=== PATIENT | male | born 1970 | race Caucasian/White ===

== ENCOUNTER 2017-01-16 12:07 | Emergency (ER) | payer BC, MEDICARE ==
[2017-01-16 12:16] VITALS: BP 201/83; PULSE 113; RESP 16; TEMP 96.8
--- NOTE | 2017-01-16 12:44 | ED ---
General Adult HPI - General Chief complaint: Urogenital Stated complaint: Cannot urinate Time Seen by Provider: 01/16/17 12:10 Source: patient, RN notes reviewed Mode of arrival: ambulatory Limitations: no limitations - History of Present Illness Initial comments: This is a 46-year-old male with a past medical history significant for prostate problems. Patient comes to emergency room today because he is unable to urinate since this morning. Patient states he is needed a Milan catheter in the past and he would like one stand for a few days because he is afraid is a reoccur. Patient states he has an appointment in the near future with urology. Patient denies any dysuria or hematuria. Patient denies any fever chills patient denies back pain - Related Data Home Medications Medication Instructions Recorded Confirmed DULoxetine HCL [Cymbalta] 60 mg PO DAILY 01/16/17 01/16/17 Gabapentin [Neurontin] 300 mg PO TID 01/16/17 01/16/17 Ibuprofen [Motrin] 800 mg PO TID 01/16/17 01/16/17 Tamsulosin [Flomax] 0.4 mg PO DAILY 01/16/17 01/16/17 Allergies Allergy/AdvReac Type Severity Reaction Status Date / Time shellfish derived [Shellfish] Allergy Anaphylaxis Verified 01/16/17 12:30 Review of Systems ROS Statement: Those systems with pertinent positive or pertinent negative responses have been documented in the HPI. ROS Other: All systems not noted in ROS Statement are negative. Past Medical History Additional Past Medical History / Comment(s): back pain, enlarged prostate History of Any Multi-Drug Resistant Organisms: None Reported Past Surgical History: Back Surgery Additional Past Surgical History / Comment(s): laminectomy l 4 l5 fusion Past Psychological History: Depression Smoking Status: Current every day smoker Past Alcohol Use History: None Reported Past Drug Use History: None Reported General Exam - General Exam Comments Initial Comments: GENERAL: Patient is well-developed and well-nourished. Patient is nontoxic and well- hydrated and is in mild distress. ENT: Neck is soft and supple. No significant lymphadenopathy is noted. Oropharynx is clear. Moist mucous membranes. Neck has full range of motion without eliciting any pain. EYES: The sclera were anicteric and conjunctiva were pink and moist. Extraocular movements were intact and pupils were equal round and reactive to light. Eyelids were unremarkable. PULMONARY: Unlabored respirations. Good breath sounds bilaterally. No audible rales rhonchi or wheezing was noted. CARDIOVASCULAR: There is a regular rate and rhythm without any murmurs gallops or rubs. ABDOMEN: Lower abdomen is mildly tender and distended. No palpable organomegaly was noted. There is no palpable pulsatile mass. SKIN: Skin is clear with no lesions or rashes and otherwise unremarkable. NEUROLOGIC: Patient is alert and oriented x3. Cranial nerves II through XII are grossly intact. Motor and sensory are also intact. Normal speech, volume and content. Symmetrical smile. MUSCULOSKELETAL: Normal extremities with adequate strength and full range of motion. No lower extremity swelling or edema. No calf tenderness. LYMPHATICS: No significant lymphadenopathy is noted PSYCHIATRIC: Normal psychiatric evaluation. Limitations: no limitations Course Vital Signs 01/16/17 12:12 Temperature 96.8 F L Pulse Rate 113 H Respiratory 16 Rate Blood Pressure 201/83 O2 Sat by Pulse 100 Oximetry Medical Decision Making - Medical Decision Making A Milan catheter was placed and the patient a 500 mL out complete relief of the distention and tenderness. Disposition Clinical Impression: Urinary retention Disposition: HOME SELF-CARE Condition: Good Instructions: Urinary Retention in Men (ED) Referrals: None,Stated [Primary Care Provider] - 1-2 days Time of Disposition: 12:44
[2017-01-16 12:50] LABS: Appearance,Urine Clear (Clear); Bilirubin,Urine Negative (Negative); Glucose,Urine (UA) Negative (Negative); Ketones,Urine Negative (Negative); Leukocyte Esterase,Urine Negative (Negative); Nitrite,Urine Negative (Negative); Protein,Urine Negative (Negative); Specific Gravity,Urine 1.003 (1.001-1.035); UA Billing (MACRO vs. MICRO) CHEM; Urobilinogen,Urine <2.0 mg/dL (<2.0)
== END 2017-01-16 13:10 | disposition home or self-care (01) ==
LOC: EC 12:07
DX: R33.9 Retention of urine, unspecified (principal); F32.9 Major depressive disorder, single episode, unspecified; M54.9 Dorsalgia, unspecified; F17.200 Nicotine dependence, unspecified, uncomplicated; Z91.013 Allergy to seafood; Z79.1 Long term (current) use of non-steroidal anti-inflammatories (NSAID); Z79.899 Other long term (current) drug therapy
CPT/HCPCS: 51702; 81003; 99283

== ENCOUNTER 2017-03-20 10:49 | Emergency (ER) | payer BC, MEDICARE ==
--- NOTE | 2017-03-20 11:56 | XR ---
EXAMINATION TYPE: XR lumbar spine 2 or 3V DATE OF EXAM: 03/20/2017 COMPARISON: 02/21/2012 HISTORY: 46-year-old male low back pain radiating up spine since fall 2 days ago TECHNIQUE: 3 views FINDINGS: L3-S1 posterior and interbody fusion is demonstrated. Corresponding laminectomies. Vertebral body hei ghts are preserved. Facet arthropathy above the fusion at L2-L3 with similar grade 1 retrolisthesis. Similar trace grade 1 retrolisthesis at L1-L2 as well. The orthopedic hardware appears largely uncomp licated. There is extension of posterior fusion as compared to 2011. IMPRESSION: L3-S1 posterior and interbody fusion. Corresponding laminectomies. Facet arthropathy above the fusion at L2-L3 with similar trace grade 1 retrolisthesis here and at L1-L2. No vertebral compression evelin apse.
--- NOTE | 2017-03-20 12:25 | ED ---
Fall HPI - General Chief Complaint: Fall Stated Complaint: Fall/ Back pain Time Seen by Provider: 03/20/17 11:56 Source: patient Mode of arrival: ambulatory - History of Present Illness Initial Comments: 46-year-old patient complaining of back pain and pain radiating up his back and down his legs. The pain began Monday after the patient slipped and fell on his deck. Return to the injury the patient states he did not have the symptoms. Patient reports pain with ambulation. Patient also states he has pain radiating down his spine when he turns his neck left and right. The patient has a significant history of 3 lumbar surgical procedures without complications. Patient denies any bowel bladder incontinence or retention. Has meant to some extremity paresthesias on the right foot, left upper thigh region. Patient states that he seems to not have great function of his right foot he states it does not move his usually would. Patient surgery most recent was in the last year by Dr. [email or web address]. Patient states that he does not normally take any pain medication. Patient does admit to small area swelling in his upper back region. - Related Data Home Medications Medication Instructions Recorded Confirmed Gabapentin [Neurontin] 300 mg PO TID 01/16/17 03/20/17 Ibuprofen [Motrin] 800 mg PO TID 01/16/17 03/20/17 Tamsulosin [Flomax] 0.4 mg PO DAILY 01/16/17 03/20/17 Acetaminophen Tab [Tylenol Tab] 650 mg PO Q6H PRN 03/20/17 03/20/17 Omeprazole Magnesium [PriLOSEC OTC] 20 mg PO DAILY 03/20/17 03/20/17 Previous Rx's Medication Instructions Recorded Hydrocodone/Acetaminophen [Gregory 1 tab PO Q6HR PRN #20 tab 03/20/17 5-325] Allergies Allergy/AdvReac Type Severity Reaction Status Date / Time shellfish derived [Shellfish] Allergy Anaphylaxis Verified 03/20/17 12:00 Review of Systems ROS Statement: Those systems with pertinent positive or pertinent negative responses have been documented in the HPI. ROS Other: All systems not noted in ROS Statement are negative. Past Medical History Additional Past Medical History / Comment(s): back pain, enlarged prostate History of Any Multi-Drug Resistant Organisms: None Reported Past Surgical History: Back Surgery Additional Past Surgical History / Comment(s): laminectomy l 4 l5 fusion Past Psychological History: Depression Smoking Status: Current every day smoker Past Alcohol Use History: None Reported Past Drug Use History: None Reported General Exam Limitations: no limitations General appearance: alert, in no apparent distress Head exam: Present: atraumatic, normocephalic, normal inspection Eye exam: Present: normal appearance, PERRL, EOMI. Absent: scleral icterus, conjunctival injection, periorbital swelling Neck exam: Present: normal inspection, full ROM. Absent: tenderness, meningismus, lymphadenopathy Respiratory exam: Present: normal lung sounds bilaterally. Absent: respiratory distress, wheezes, rales, rhonchi, stridor Cardiovascular Exam: Present: regular rate, normal rhythm, normal heart sounds. Absent: systolic murmur, diastolic murmur, rubs, gallop, clicks GI/Abdominal exam: Present: soft, normal bowel sounds. Absent: distended, tenderness, guarding, rebound, rigid Speculum exam: Present: other Extremities exam: Present: tenderness, other (Tender with palpation over the lumbar spine. The patient is unable to perform heel walking and performs toe walk with difficulty. He is unable to perform back flexion and experiences pain and reproduced symptoms with back flexion. Neurovascular remains grossly intact. Patient reports decrease strength the right is notable week or on the right compared to left) Back exam: Present: tenderness, vertebral tenderness (localized tenderness over the lumbar spine), other Neurological exam: Present: alert, oriented X3, CN II-XII intact, reflexes normal. Absent: motor sensory deficit Psychiatric exam: Present: normal affect, normal mood Skin exam: Present: warm, dry, intact, normal color. Absent: rash Course Vital Signs 03/20/17 03/20/17 11:01 13:54 Temperature 98.2 F 97.2 F L Pulse Rate 109 H 92 Respiratory 18 18 Rate Blood Pressure 158/96 137/86 O2 Sat by Pulse 98 98 Oximetry Medical Decision Making - Medical Decision Making 46-year-old male present emergency department chief complaint fall back pain. X -rays were thoroughly reviewed patient does have some post surgical changes and degenerative changes. CT was performed. Patient was able to urinate, patient is an with sore in the emergency Department with no difficulty. Patient does complain of pain and some paresthesias. Patient will be discharged at this time he is advised to follow-up with his surgeon within 48 hours or return for any worsening symptoms. We did discuss this and all questions were answered. - Lab Data Lab Results 03/20/17 Range/Units 14:48 Urine Color Yellow Urine Appearance Clear (Clear) Urine pH 6.5 (5.0-8.0) Ur Specific [place] 1.016 (1.001-1.035) Urine Protein Negative (Negative) Urine Glucose (UA) Negative (Negative) Urine Ketones Negative (Negative) Urine Blood Negative (Negative) Urine Nitrite Negative (Negative) Urine Bilirubin Negative (Negative) Urine Urobilinogen <2.0 (<2.0) mg/dL Ur Leukocyte Esterase Negative (Negative) Urine Opiates Screen Not Detected (NotDetected) Ur Oxycodone Screen Not Detected (NotDetected) Urine Methadone Screen Not Detected (NotDetected) Ur Propoxyphene Screen Not Detected (NotDetected) Ur Barbiturates Screen Not Detected (NotDetected) U Tricyclic Antidepress Not Detected (NotDetected) Ur Phencyclidine Scrn Not Detected (NotDetected) Ur Amphetamines Screen Not Detected (NotDetected) U Methamphetamines Scrn Not Detected (NotDetected) U Benzodiazepines Scrn Not Detected (NotDetected) Urine Cocaine Screen Not Detected (NotDetected) U Marijuana (THC) Screen Not Detected (NotDetected) Disposition Clinical Impression: Fall, Back pain, Lumbar radiculopathy Disposition: HOME SELF-CARE Condition: Stable Instructions: Lumbar Radiculopathy (ED) Additional Instructions: Please return to the Emergency Department if symptoms worsen or any other concerns. Prescriptions: Hydrocodone/Acetaminophen [Gregory 5-325] 1 tab PO Q6HR PRN #20 tab PRN Reason: Pain Referrals: None,Stated [Primary Care Provider] - 1-2 days Garcia Cruz MD [REFERRING] - 1-2 days Time of Disposition: 15:26
--- NOTE | 2017-03-20 13:05 | XR ---
EXAMINATION TYPE: XR thoracic spine 2V DATE OF EXAM: 03/20/2017 COMPARISON: None HISTORY: 46-year-old male with lower back pain radiating up the spine since fall 2 days ago TECHNIQUE: 3 views FINDINGS: The aortic knob may be ectatic. 12 rib-bearing thoracic vertebral bodies. All pedicles are visualized. Limited visualization of the u ppermost thoracic vertebral bodies. Overall vertebral body heights and alignment appears maintained w ith mild endplate spondylosis throughout. IMPRESSION: Limited visualization of upper most thoracic vertebral bodies due to overlying patient's shoulders. V isualized segments show preserved vertebral body heights and maintained alignment. Possible ectatic a ortic knob.
--- NOTE | 2017-03-20 13:07 | XR ---
EXAMINATION TYPE: XR pelvis AP view DATE OF EXAM: 03/20/2017 COMPARISON: NONE HISTORY: 46-year-old male with low back pain since fall 2 days ago FINDINGS: Lumbosacral fusion hardware. SI joints appear symmetric and intact as does the pubic symphysis. [place] to the arcuate lines of the sacrum. Hips appear symmetric and intact. No acute fracture or dis location seen. IMPRESSION: Partially visualized lumbosacral fusion hardware. No acute osseous abnormality seen.
--- NOTE | 2017-03-20 14:06 | CT ---
EXAMINATION TYPE: CT lumbar spine wo con DATE OF EXAM: 03/20/2017 COMPARISON: 12/14/2015 HISTORY: 46-year-old male Fall/back pain TECHNIQUE: Contiguous axial scanning of the lumbar spine without IV contrast. Coronal and sagittal re constructions performed. CT DLP: 994 mGycm Automated exposure control for dose reduction was used. FINDINGS: There are postsurgical changes of L3-S1 posterior and interbody fusion with corresponding laminectomi es. Trace grade 1 retrolistheses at L1-L2 and L2-L3 with mild bulging discs. Bilateral L2 pars defects are chronic and in retrospect were present on 12/14/2015. No evident complication of the orthopedic hardware. On the left, bony hyperostotic changes contribute to moderate L5-S1 neuroforaminal stenosis. On the right, changes contribute to mild right L5-S1 and L2-L3 neural foraminal stenosis. No acute fracture is identified. No prevertebral paravertebral soft tissue abnormality seen. IMPRESSION: 1. STATUS POST L3-S1 POSTERIOR AND INTERBODY FUSION. NO ACUTE OSSEOUS ABNORMALITY SEEN. 2. TRACE GRADE 1 RETROLISTHESES AT L1-L2 AND L2-L3 APPEAR DEGENERATIVE. 3. BILATERAL L2 PARS DEFECTS ARE CHRONIC AND WERE PRESENT ON 12/14/2015 IN RETROSPECT. 4. AT L5-S1, DEGENERATIVE CHANGES CONTRIBUTE TO MODERATE LEFT AND MILD RIGHT NEUROFORAMINAL STENOSIS. ADDITIONAL MILD RIGHT L2-L3 NEUROFORAMINAL STENOSIS.
[2017-03-20 14:55] LABS: Appearance,Urine Clear (Clear); Bilirubin,Urine Negative (Negative); Blood,Urine Negative (Negative); Color,Urine Yellow; Glucose,Urine (UA) Negative (Negative); Ketones,Urine Negative (Negative); Leukocyte Esterase,Urine Negative (Negative); Nitrite,Urine Negative (Negative); PH, Urine 6.5 (5.0-8.0); Protein,Urine Negative (Negative); Specific Gravity,Urine 1.016 (1.001-1.035); Urobilinogen,Urine <2.0 mg/dL (<2.0)
[2017-03-20 15:12] LABS: Amphetamine Screen,Urine Not Detected (NotDetected); Barbiturate Screen,Urine Not Detected (NotDetected); Benzodiazepines Screen,Urine Not Detected (NotDetected); Cocaine Screen,Urine Not Detected (NotDetected); Methadone Screen, Urine Not Detected (NotDetected); Opiate Screen,Urine Not Detected (NotDetected); Oxycodone Screen, Urine Not Detected (NotDetected); Phencyclidine Screen,Urine Not Detected (NotDetected); Tricyclic Antidepressant,Urine Not Detected (NotDetected); Urn Cannabinoid Scrn Not Detected (NotDetected)
[2017-03-20] MEDS ORDERED: KETOROLAC 60 MG/2 ML VIAL IM STA (15:26)
[2017-03-20 15:44] VITALS: BP 143/92; PULSE 96; RESP 14; TEMP 97.6
== END 2017-03-20 15:47 | disposition home or self-care (01) ==
LOC: EC 10:49
DX: M54.16 Radiculopathy, lumbar region (principal); N40.0 Benign prostatic hyperplasia without lower urinary tract symptoms; F17.200 Nicotine dependence, unspecified, uncomplicated; Z79.1 Long term (current) use of non-steroidal anti-inflammatories (NSAID); Z79.899 Other long term (current) drug therapy; Z91.013 Allergy to seafood; Z98.1 Arthrodesis status; W01.0XXA Fall on same level from slipping, tripping and stumbling without subsequent striking against object, initial encounter
CPT/HCPCS: 81003; 80306; 72070; 72100; 72170; 72131; 99284; 96372; J1885

== ENCOUNTER → 2017-05-02 | Outpatient (CLI) | payer MEDICARE ==
--- NOTE | 2017-05-02 10:16 | CT ---
EXAMINATION TYPE: CT lumbar spine wo con DATE OF EXAM: 05/02/2017 COMPARISON: 03/20/2017 HISTORY: Low back pain CT DLP: 492.9 mGycm Automated exposure control for dose reduction was used. An unenhanced CT of the lumbar spine was performed. Bone and soft tissue window settings are submitt ed as well as coronal and sagittal reconstructions. FINDINGS: There is not a significant interval change. Posterior fusion is again noted of L3-S1, multilevel lami nectomies are again seen. Transpedicular screws cause some streak artifact over portions of the exam. Intervertebral spacing material is again noted at L3-4, L4-5 and L5-S1, there is stable alignment. P ars defects at L2 bilaterally again noted. Minimal retrolisthesis grade 1 L3-4 is stable. Soft tissue present posterior to the thecal sac again noted at multiple levels at surgical site as on prior. L1-L2: Normal disc space height. No disc herniation protrusion or central stenosis. No facet joint arthropathy. No evidence for foraminal encroachment. L2-L3: Normal disc space height. No disc herniation protrusion or central stenosis. No facet joint arthropathy. No evidence for foraminal encroachment. L3-L4: Stable in appearance. No evident disc herniation. No significant foraminal encroachment or nino tral stenosis. Laminectomies are present. There is facet arthropathy. L4-L5: There is some soft tissue noted in the left neural foramen which is indeterminate. No evident disc herniation. No significant central stenosis. Laminectomies are present. There is facet arthropat hy. L5-S1: Stable in appearance. No evident disc herniation. No significant foraminal encroachment or nino tral stenosis. Laminectomies are present. There is facet arthropathy. IMPRESSION: Postop changes. Abnormal soft tissue at the left neural foramen at L4-5 may represent granulation tis jose or possibly disc material, correlate for left L4 radiculopathy. Additional findings above. Probab le limitations to the exam.
== END | disposition home or self-care (01) ==
LOC: RADCTMAIN 08:19
PROVIDERS: ATTEND Psychiatry & Neurology Neurology
DX: M54.5 Low back pain (principal); Z98.890 Other specified postprocedural states; Z98.1 Arthrodesis status
CPT/HCPCS: 72131

== ENCOUNTER → 2017-08-29 | Outpatient (CLI) | payer MEDICARE ==
--- NOTE | 2017-08-29 12:25 | CT ---
EXAMINATION TYPE: CT lumbar spine wo/w con DATE OF EXAM: 08/29/2017 COMPARISON: 05/02/2017 HISTORY: Olegario leg numbness CT DLP: 1873.13 mGycm Automated exposure control for dose reduction was used. CONTRAST: CT scan of the lumbar is performed without and with IV Contrast, patient injected with mL of Isovue [address] of the lumbar spine was performed. Bone and soft tissue window settings are submitted as well as coronal and sagittal reconstructions. Evaluation the spinal canal is nondiagnostic due to artifact and lack of resolution and there appears to be extensive metallic artifact from the surgical hardware particularly at levels L2-S1. Could not exclude disc herniations at these levels. There is abnormal soft tissue in the posterior soft tissues extending to the spinal canal which is si milar in appearance the prior exam and most likely is postsurgical. No definite enhancement. Posterio r fusion is again noted of L3-S1, multilevel laminectomies are again seen. Transpedicular screws caus e some streak artifact over portions of the exam. Intervertebral spacing material is again noted at L 3-4, L4-5 and L5-S1, there is stable alignment. Pars defects at L2 bilaterally again noted. Minimal r etrolisthesis grade 1 L3 -4 is stable. Soft tissue present posterior to the thecal sac again noted at multiple levels at surgical site as on prior. Arthropathy of the SI joints noted. L1-L2: Normal disc space height. No disc herniation protrusion or central stenosis. No facet joint arthropathy. No evidence for foraminal encroachment. L2-L3: Normal disc space height. No disc herniation protrusion or central stenosis. No facet joint arthropathy. No evidence for foraminal encroachment. L3-L4: Normal disc space height. No disc herniation protrusion or central stenosis. No facet joint arthropathy. No evidence for foraminal encroachment. Laminectomies are present. There is facet arth ropathy. L4-L5: There is some soft tissue noted in the left neural foramen which is indeterminate. No evident disc herniation. No significant central stenosis. Laminectomies are present. There is facet arthropat hy. L5-S1: Stable in appearance. No evident disc herniation. No significant foraminal encroachment or nino tral stenosis. Laminectomies are present. There is facet arthropathy. IMPRESSION: Severely limited exam with nondiagnostic assessment spinal canal at the surgical levels due to artifa ct. Postsurgical changes appears similar to the prior exam given the limitation exam. Abnormal soft t issue attenuation again suspected within the left neural foramina at L4-L5 which could represent gran ulation tissue or scarring. Residual disc material not excluded. MRI suggested given the limitation o f the exam..
--- NOTE | 2017-08-29 12:34 | CT ---
EXAMINATION TYPE: CT brain wo/w con DATE OF EXAM: 08/29/2017 COMPARISON: None HISTORY: Bilateral leg numbness CT DLP: 2288.80 mGycm Automated Exposure Control for Dose Reduction was Utilized. TECHNIQUE: CT scan of the head is performed with IV contrast.,CT scan of the head is performed withou t and with without and with IV Contrast, patient injected with 100 mL of Isovue 300. CLINICAL HISTORY: Weakness COMPARISON: None. FINDINGS: Noncontrast images show no acute intracranial hemorrhage or midline shift. The ventricles and sulci are consistent with patient's age. Postcontrast images show no suspicious enhancing intrap arenchymal mass. The globes are intact and the visualized sinuses are clear. IMPRESSION: 1. No acute process.
== END | disposition home or self-care (01) ==
LOC: RADCTMAIN 10:37
PROVIDERS: ATTEND Psychiatry & Neurology Neurology
DX: M79.89 Other specified soft tissue disorders (principal); R20.0 Anesthesia of skin; Z98.1 Arthrodesis status
CPT/HCPCS: 72133; 70470; Q9967